=== PATIENT | female | born 1970 | race Caucasian/White ===

== ENCOUNTER 2016-09-06 10:41 | Emergency (ER) | payer MEDICAID, OTHER ==
[~2016-09-06] VITALS: Ht 167.6 cm; Wt 109.0 kg
[~2016-09-06 10:41] MED LIST: FAMO10TA31 PO; HYDR-3240 PO
[2016-09-06] MEDS ORDERED: KETOROLAC 30 MG/1 ML ONE (11:07)
[2016-09-06] MEDS ORDERED: KETOROLAC 30 MG/1 ML IM ONE (11:30)
[2016-09-06 13:12] VITALS: BP 133/66
== END 2016-09-06 13:25 | disposition home or self-care (01) ==
LOC: ED 11:49
DX: S13.4XXA Sprain of ligaments of cervical spine, initial encounter (principal); S00.83XA Contusion of other part of head, initial encounter; S40.012A Contusion of left shoulder, initial encounter; S50.02XA Contusion of left elbow, initial encounter; F17.200 Nicotine dependence, unspecified, uncomplicated; Z90.49 Acquired absence of other specified parts of digestive tract; V43.52XA Car driver injured in collision with other type car in traffic accident, initial encounter; Y93.89 Activity, other specified; Y92.410 Unspecified street and highway as the place of occurrence of the external cause; Y99.9 Unspecified external cause status
CPT/HCPCS: 70450; 72125; 73030; 73080; 96372; 99284; J1885

== ENCOUNTER 2017-12-16 16:04 | Emergency (ER) | payer MEDICAID, OTHER ==
[~2017-12-16] VITALS: Ht 165.1 cm; Wt 112.6 kg
[2017-12-16 16:12] VITALS: BP 129/82
[2017-12-16] MEDS ORDERED: IBUPROFEN 200 MG TABLET ONE (16:43)
[2017-12-16] MEDS ORDERED: IBUPROFEN 200 MG TABLET PO ONE (17:00)
== END 2017-12-16 17:40 | disposition home or self-care (01) ==
LOC: ED 17:35
DX: M65.4 Radial styloid tenosynovitis [de Quervain] (principal); F17.210 Nicotine dependence, cigarettes, uncomplicated
CPT/HCPCS: 99284

== ENCOUNTER 2019-07-22 14:53 | Emergency (ER) | payer MEDICAID ==
[~2019-07-22] VITALS: Ht 167.6 cm; Wt 116.1 kg
[2019-07-22 15:03] VITALS: BP 140/70
[2019-07-22] MEDS ORDERED: MORPHINE SULFATE 4 MG/ML, 1ML IVPush PRN (16:00)
[2019-07-22] MEDS ORDERED: KETOROLAC 30 MG/1 ML IV ONE (16:00)
[2019-07-22] MEDS ORDERED: ONDANSETRON 2MG/ML, 2ML IVPush ONE (16:00)
[2019-07-22] MEDS ORDERED: HYDROcodone/APAP 5/325 TABLET ONE (16:06)
[2019-07-22 16:09] LABS: BASOPHILS # (AUTO) 0.08 x10^3/uL (0-0.1); BASOPHILS % (AUTO) 1 % (0-1); EOSINOPHILS # (AUTO) 0.49 x10^3/uL (0-0.4); EOSINOPHILS % (AUTO) 4 % (1-7); LYMPHOCYTES % (AUTO) 18 % (22-44); MD NO; MEAN CORPUSCULAR HEMOGLOBIN 29.2 pg (27.0-34.8); MEAN CORPUSCULAR HGB CONC 33.4 g/dL (32.4-35.8); MEAN CORPUSCULAR VOLUME 87.4 fL (80-100); MEAN PLATELET VOLUME 9.4 fL (7.4-10.4); MONOCYTES # (AUTO) 0.61 x10^3/uL (0.2-0.8); MONOCYTES % (AUTO) 5 % (2-9); NEUTROPHILS % (AUTO) 72 % (42-75); PLATELET COUNT 307 x10^3/uL (130-400); RED BLOOD COUNT 5.15 x10^6/uL (3.82-5.3); RED CELL DISTRIBUTION WIDTH 13.8 % (9.6-15.2)
[2019-07-22 16:22] LABS: MICROSCOPIC NOT IND
[2019-07-22] MEDS ORDERED: HYDROcodone/APAP 5/325 TABLET PO ONE (16:30)
[2019-07-22 16:32] LABS: ALANINE AMINOTRANSFERASE 30 U/L (12-78); ALBUMIN 3.2 g/dL (3.4-5.0); ANION GAP 11 mmol/L (5-15); CALCIUM 8.8 mg/dL (8.5-10.1); CHLORIDE 107 mmol/L (98-107)
[2019-07-22 16:34] LABS: CREATININE 0.76 mg/dL (0.55-1.02)
[2019-07-22 16:35] LABS: ALKALINE PHOSPHATASE 71 U/L (45-117); BILIRUBIN,TOTAL 0.8 mg/dL (0.2-1.0); TOTAL PROTEIN 7.2 g/dL (6.4-8.2)
[2019-07-22] MEDS ORDERED: SODIUM CHLORIDE FLUSH 10ML SYR IVF ONE (17:00)
== END 2019-07-22 17:24 | disposition home or self-care (01) ==
LOC: ED 16:35
DX: S39.012A Strain of muscle, fascia and tendon of lower back, initial encounter (principal); R10.9 Unspecified abdominal pain; Z90.49 Acquired absence of other specified parts of digestive tract; X58.XXXA Exposure to other specified factors, initial encounter; Y93.89 Activity, other specified; Y92.89 Other specified places as the place of occurrence of the external cause; Y99.8 Other external cause status
CPT/HCPCS: 36415; 80053; 81003; 85025; 99283

== ENCOUNTER 2020-09-11 08:39 | Emergency (ER) | payer MEDICAID ==
[~2020-09-11] VITALS: Ht 167.6 cm; Wt 113.0 kg
[~2020-09-11 08:39] MED LIST changes: +HYDR-2214 PO; -HYDR-3240 PO
--- NOTE | 2020-09-11 09:14 | NUR ---
FIRST CONTACT: "LIFTING ONE OF MY CLIENTS ASHLIE & HEARD A CRACK", ABLE TO WIGGLE FINGERS, ALEKSANDR WRAP IN PLACE COMFORT FILLER, PAIN WORSE IN 3RD & 4TH DIGITS. PT TO ROOM WITH STEADY GAIT.
[2020-09-11] MEDS ORDERED: OXYcodone/APAP 5/325MG TABLET ONE (09:46)
[2020-09-11] MEDS ORDERED: OXYcodone/APAP 5/325MG TABLET PO ONE (10:00)
[2020-09-11 10:46] VITALS: BP 101/51
--- NOTE | 2020-09-11 10:58 | NUR ---
TASK RN NOTE: WRIST LACER APPLIED TO RIGHT WRIST, PT TOLERATED WELL. PT A&O, RESPS EVEN AND UNLABORED, AMBULATORY TO DC DESK WITH STEADY GAIT. PT GIVEN DC INSTRUCTIONS AND SCRIPT, EDUCATED REGARDING RX FOR NAPROXEN. WORK NOTE PROVIDED BY GEORGES BARBA.
== END 2020-09-11 10:59 | disposition home or self-care (01) ==
LOC: ED 09:11
DX: S63.654A Sprain of metacarpophalangeal joint of right ring finger, initial encounter (principal); S63.656A Sprain of metacarpophalangeal joint of right little finger, initial encounter; M25.531 Pain in right wrist; M79.641 Pain in right hand; F17.200 Nicotine dependence, unspecified, uncomplicated; X58.XXXA Exposure to other specified factors, initial encounter; Y93.89 Activity, other specified; Y92.69 Other specified industrial and construction area as the place of occurrence of the external cause; Y99.8 Other external cause status
CPT/HCPCS: 29125; 99284